=== PATIENT | female | born 1990 | race Caucasian/White ===

== ENCOUNTER 2020-11-05 05:19 | Inpatient (IN) | payer OTHER ==
[2020-11-05] MEDS ORDERED: BICITRA ORAL LIQD 30ML PO ONE ×2 (05:58→06:37)
[2020-11-05] MEDS ORDERED: METOCLOPRAMIDE 10 MG/2 ML INJ IV ONE ×2 (05:58→06:37)
[2020-11-05] MEDS ORDERED: FAMOTIDINE 20 MG/2 ML INJ IV ONE ×2 (05:58→06:37)
[2020-11-05] MEDS ORDERED: OXYTOCIN DRIP 30 UNITS/500 ML BAG IV SCH ×3 (06:00→09:00)
[2020-11-05] MEDS: LACTATED RINGERS 1,000 ML IV SCH ×2 (06:18→06:56)
--- NOTE | 2020-11-05 06:31 | History and Physical Report ---
History of Present Illness Date of examination: 11/05/20 Date of admission: 11/05/20 05:19 Chief complaint: Term with expected large baby. History of present illness: First following blastocyst implantation in [facility]. Subsequent course unremarkable. Past History Past Medical History: no pertinent history Family/Genetic History: none Social history: no significant social history, - Obstetrical History Expected Date of Delivery: 11/12/20 Actual Gestation: 39 Week(s) 0 Day(s) : 1 Para: 0 Medications and Allergies Allergies Allergy/AdvReac Type Severity Reaction Status Date / Time No Known Allergies Allergy Unverified 11/05/20 05:57 Active Meds: Active Medications Lactated Ringer's (Lactated Ringers) 1,000 mls @ 2,250 mls/hr IV PREOP JAYESH Stop: 11/06/20 06:27 Oxytocin/Sodium Chloride (Pitocin/Ns 30 Unit/500ml) 30 units in 500 mls @ 0 mls/hr IV TITR JAYESH; Protocol Review of Systems All systems: negative - Vital Signs Vital signs: Vital Signs Pulse BP 72 126/86 11/05/20 06:25 11/05/20 06:25 Temp Pulse Resp BP Pulse Ox 68 126/86 99 11/05/20 06:26 11/05/20 06:25 11/05/20 06:26 - Physical Exam Breasts: Positive: deferred Cardiovascular: Normal S1, Normal S2 Lungs: Positive: Clear to auscultation, Normal air movement Abdomen: Positive: soft, distention Genitourinary (Female): Positive: other (deferred) - Obstetrical FHR: auscultation normal Results All other labs normal. Assessment and Plan Term . Blastocyst Implantation. macrosomia. Options for delivery were fully discussed and patient chose a over trial of labor. Procedure was fully explained and patient gave her informed consent.
[2020-11-05 06:42] LABS: Hematocrit 36.5 % (30.3-42.9); Hemoglobin 12.2 gm/dl (10.1-14.3); Mean Corpuscular HGB Conc 33 % (30-34); Mean Corpuscular Volume 95 fl (79-97); Platelet Count 128 K/mm3 (140-440); Red Blood Count 3.85 M/mm3 (3.65-5.03); Red Cell Distribution Width 15.9 % (13.2-15.2)
[2020-11-05] MEDS ORDERED: LACTATED RINGERS 1,000 ML IV SCH (06:45)
[2020-11-05] MEDS ORDERED: ePHEDrine SULFATE 50 MG/1 ML INJ ONE (07:00)
--- NOTE | 2020-11-05 07:03 | Anesthesia Consultation ---
Anesthesia Consult and Med Hx Date of service: 11/05/20 - Airway Anesthetic Teeth Evaluation: Good ROM Head & Neck: Adequate Mental/Hyoid Distance: Adequate Mallampati Class: Class II Intubation Access Assessment: Probably Good - Pulmonary Exam CTA: Yes - Cardiac Exam Cardiac Exam: RRR - Pre-Operative Health Status ASA Pre-Surgery Classification: ASA2 Proposed Anesthetic Plan: Spinal - Pulmonary Hx Asthma: No COPD: No Hx Pneumonia: No - Endocrine Hx End Stage Renal Disease: No - Other Systems Hx Alcohol Use: No
--- NOTE | 2020-11-05 07:04 | Anesthesia Day of Surgery ---
Anesthesia Day of Surgery - Day of Surgery Patient Examined: Yes Patient H&P Reviewed: Yes Patient is NPO: Yes
[2020-11-05] MEDS ORDERED: ceFAZolin/Water 2 GM/20 ML 2 GM/20 ML SYRINGE IV ONE (07:08)
[2020-11-05] MEDS ORDERED: ONDANSETRON 4 MG/2 ML INJ ONE (07:09)
[2020-11-05] MEDS ORDERED: BUPIVACAINE/PF (0.5%) 5 MG/1 ML 30 ML VIAL INFILTRATI ONE (07:09)
[2020-11-05] MEDS ORDERED: KETOROLAC 30 MG/1 ML INJ ONE (07:09)
[2020-11-05] MEDS ORDERED: dexAMETHasone 20 MG/5 ML VIAL ONE (07:09)
[2020-11-05] MEDS ORDERED: PHENYLEPHRINE/NS 1,000 MCG/10 ML SYRINGE (OR USE) IV ONE (07:09)
[2020-11-05] MEDS ORDERED: SODIUM CHLORIDE 0.9% IRR 1,500 ML BOTTLE IR ONE (07:40)
[2020-11-05] MEDS ORDERED: WATER FOR IRRIG STERILE 1,500 ML BOTTLE IR ONE (07:40)
[2020-11-05] MEDS ORDERED: NALOXONE 0.4 MG/1 ML INJ IV PRN (08:35)
[2020-11-05] MEDS ORDERED: ONDANSETRON 4 MG/2 ML INJ IV PRN (08:35)
[2020-11-05] MEDS ORDERED: LANOLIN/ZINC/DIMETHICONE (LANSINOH) 7 GM TP PRN (08:35)
[2020-11-05] MEDS ORDERED: PROMETHAZINE 25 MG RECT SUPP PR PRN (08:35)
--- NOTE | 2020-11-05 08:47 | Operative Report ---
Operative Report Operative Report: Date of surgery: November 05, 2020 Preoperative diagnoses:[Term , infertility, macrosomia] Postoperative diagnoses: The same +4 cm x 2 cm fundal fibroid. Operation: Lower segment transverse delivery Surgeon:Selene Espinoza MD Health Information Tech: [JB Mejia Anesthesia: Spinal block Estimated blood loss: 700 mL Complications: None Findings: [] Procedure in detail: The patient was taken to the operating room and given a spinal block. Patient was placed in the straight supine position and a Bowens catheter was inserted. The patient was prepped in the abdomen. The drapes were placed. A timeout was done. With the go ahead from the assembler installer structures, a Pfannenstiel incision was made. This incision was carried across the subcutaneous layer to the fascia which was also divided transversely. The recti abdominis muscle flaps were stripped from the fascia using a combination of blunt and sharp dissections. The muscles were in the midline to gain access to the anterior parietal peritoneum which was divided after excluding any underlying viscera. The access to the peritoneal cavity was then widened by manual stretching. The bladder blade was applied. The utero vesicle peritoneal flap was divided transversely allowing the bladder to be displaced caudally. The uterine incision was placed in the lower segment transversely. The uterine incision was carried to the decidual layer. The uterine incision was extended on both sides using the bandage scissors. The amniotic sac was ruptured with clear fluid. The head was lifted out of the false maternal pelvis and delivered through the incision using fundal pressure. The airways were bulb suctioned beginning with the mouth. Continuing fundal pressure combined with traction on the mandibular processes of the jaw delivered the rest of the baby. The umbilical cord was double clamped and divided. The baby was carefully transferred to the pediatric team. The placenta was manually removed from the uterine cavity. The uterine cavity was explored and was empty of any placental remnants. The uterine incision was repaired in 2 layers with #1 Vicryl. The surgical line on the uterus was hemostatic. Blood and clots were cleared from the peritoneal cavity. The anterior parietal peritoneum was repaired with #1 Vicryl. The fascia was repaired with #1 Vicryl. The subcutaneous layer was made hemostatic using the Bovie before the skin was closed subcuticularly with 4-0 Vicryl. There were no complications. The estimated blood loss was 700 mL. All sponges and instrument counts were correct. Patient was safely transferred to the recovery room.
[2020-11-05] MEDS ORDERED: ACETAMINOPHEN 325 MG TAB PO PRN (09:00)
[2020-11-05] MEDS ORDERED: WITCH HAZEL/ GLYCERIN PAD TP PRN (09:00)
--- NOTE | 2020-11-05 09:06 | Progress Note ---
Spinal Anesthesia Block - Spinal Anesthesia Block Start Time: 07:35 Stop Time: 07:40 Performed by:: BETH MOLINA Procedure: Sitting, sterile chlorahexadine 0.5% prep/drape, 1% lidocaine skin local, 25G spinal needle + introducer at L3-4, + CSF, - Heme, [1.9 ml 0.5% bupivacaine + 10 mcg dexmedetomidine] injected, drape removed, patient positioned supine with left uterine displacement, and spinal level verified to be adequate prior to surgery. Joss VALLES
--- NOTE | 2020-11-05 09:07 | Progress Note ---
Regional Anesthesia Block - Regional Anesthesia Block Start Time: 09:00 Stop Time: :05 Performed By:: BETH MOLINA Procedure: U/S guided bilateral tap block performed for post-operative pain requested by Dr. Espinoza. H&P & labs reviewed. Procedure explained, questions answered, consent obtained. Patient in the supine position with ekg, blood pressure cuff and pulse ox on and working in PACU. Timeout performed immediately before start of procedure. Probe placed in the mid-axillary line and the external oblique, internal oblique, and transverse abdominus muscles identified. Skin was cleansed with chlorahexadine 0.5% and allowed to dry. A 4" 20 G [place] echogenic needle was advanced in plane until the tip was in the fascial plane between the internal oblique and the transverse abdominus. After negative aspiration 35 ml/side of [30 ml 0.5% Bupivacaine], [10 mg dexamethasone], and [40 ml sterile saline] was injected in 5 ml increments with negative aspiration in between. Patient tolerated procedure well. Joss VALLES
[2020-11-05 09:49] LABS: Band Neutrophils # (Manual) 0.2 K/mm3; Macrocytosis Few; Platelet Estimate Consistent w Auto; Total Cells Counted 100
[2020-11-05 10:05] LABS: Hematocrit 33.4 % (30.3-42.9); Hemoglobin 11.3 gm/dl (10.1-14.3); Mean Corpuscular HGB Conc 34 % (30-34); Mean Corpuscular Volume 93 fl (79-97); Platelet Count 113 K/mm3 (140-440); Red Blood Count 3.58 M/mm3 (3.65-5.03); Red Cell Distribution Width 15.4 % (13.2-15.2)
[2020-11-05 13:56] LABS: Band Neutrophils # (Manual) 0.1 K/mm3; Total Cells Counted 100
[2020-11-05 13:57] LABS: Platelet Estimate Consistent w Auto; RBC Morphology Normal
[2020-11-05] MEDS: MORPHINE 2 MG/1 ML INJ IV PRN ×2 (14:22→21:37)
[2020-11-05] MEDS ORDERED: MAGNESIUM HYDROXIDE (MOM) ORAL LIQD UDC PO PRN (20:00)
[2020-11-05 20:39] LABS: Hematocrit 30.9 % (30.3-42.9); Hemoglobin 10.4 gm/dl (10.1-14.3)
[2020-11-06] MEDS: HYDROcodone/ACETAMINOPHEN 5-325 MG TAB PO PRN ×4 (01:14→22:15)
[2020-11-06] MEDS: PRENATAL VIT27-FE FUMARATE-FOLIC ACID VIT TAB PO SCH ×2 (09:38→09:40)
--- NOTE | 2020-11-06 11:45 | Progress Note ---
Assessment and Plan Term . Blastocyst Implantation. macrosomia. Options for delivery were fully discussed and patient chose a over tria l of labor. Procedure was fully explained and patient gave her informed consent. 11/06/2020 Post Day1. Stable. - Patient Problems (1) Postoperative state Current Visit: Yes Status: Acute Subjective - Subjective Date of service: 11/06/20 Principal diagnosis: Interval history: First following blastocyst implantation in [facility]. Subsequent course unremarkable. Had an uneventful yesterday 11/05/2020. Very happy this morning and chatting on her phone. Reported that she had already walked the length of available corridor on her floor. Patient reports: appetite normal, pain well controlled, flatus, ambulating normally, no nauseated [place]: doing well Objective - Vital Signs Latest vital signs: Vital Signs Temp Pulse Resp BP BP Pulse Ox 11/06/20 09:38 16 11/06/20 08:48 98.6 F 72 18 108/77 100 11/06/20 04:45 98.2 F 71 18 108/71 97 11/05/20 23:27 98.5 F 69 20 105/69 100 11/05/20 20:35 98.0 F 20 106/68 11/05/20 17:00 98.7 F 70 18 110/68 100 Intake and Output 11/05/20 11/06/20 11/06/20 23:59 07:59 15:59 Intake Total 480 120 240 Output Total 900 300 Balance -420 -180 240 Intake: Oral 480 120 240 Output: Urine 900 300 Indwelling Catheter 600 Void 300 300 Other: Total, Intake Amount 120 120 240 Total, Output Amount 300 300 # Voids Void 1 1 - Exam Breasts: Present: deferred Lungs: Present: Normal air movement Abdomen: Present: normal appearance, soft Deep Tendon Reflex Grade: Normal +2 Incision: Present: normal, dry
--- NOTE | 2020-11-06 12:31 | Post Anesthesia Evaluation ---
- Post Anesthesia Evaluation Patient Participated: Yes Airway Patent: Yes Stable Respiratory Function: Yes Nausea/Vomiting: No Temp > 96.8F: Yes Pain Manageable: Yes Adequeate Hydration: Yes Anesthesia Complications: No Block Receding Appropriately: Yes
[2020-11-06] MEDS: IBUPROFEN 800 MG TAB PO PRN (13:46)
[2020-11-07] MEDS: HYDROcodone/ACETAMINOPHEN 5-325 MG TAB PO PRN ×3 (06:15→22:46)
[2020-11-07] MEDS: IBUPROFEN 800 MG TAB PO PRN ×2 (07:48→17:49)
[2020-11-07] MEDS: PRENATAL VIT27-FE FUMARATE-FOLIC ACID VIT TAB PO SCH (11:06)
--- NOTE | 2020-11-07 19:49 | Progress Note ---
Assessment and Plan Term . Blastocyst Implantation. macrosomia. Options for delivery were fully discussed and patient chose a over tria l of labor. Procedure was fully explained and patient gave her informed consent. 11/06/2020 Post Day1. Stable. 11/07/2020 Post op Day 2. Requesting to go home early tomorrow. [place] 5 script on file May leave in the AM if all remain stable. - Patient Problems (1) Postoperative state Current Visit: Yes Status: Acute Plan to address problem: Under post operative orders and doing just fine. Subjective - Subjective Date of service: 11/07/20 Principal diagnosis: Interval history: First following blastocyst implantation in [facility]. Subsequent course unremarkable. Had an uneventful yesterday 11/05/2020. Very happy this morning and chatting on her phone. Reported that she had already walked the length of available corridor on her floor. . 11/07/2020 Doing well. Has been walking the floor satisfactorily. Wants to go home early tomorrow. Patient reports: appetite normal, voiding normally, pain well controlled, flatus, ambulating normally, no nauseated : doing well, nursing well Objective - Vital Signs Latest vital signs: Vital Signs Temp Pulse Resp BP BP Pulse Ox 11/07/20 16:10 98 F 80 18 121/79 98 11/07/20 07:45 98.4 F 71 18 93/62 97 11/07/20 00:09 98.5 F 77 18 96/62 99 Intake and Output 11/07/20 11/07/20 11/07/20 07:59 15:59 23:59 Intake Total 600 Balance 600 Intake: Intake, Free Water 600 Other: # Voids Void 2 - Exam Breasts: Present: deferred, other (breast feedingcomfortably) Lungs: Present: Normal air movement Abdomen: Present: normal appearance, soft Uterus: Present: normal Extremities: Present: normal Deep Tendon Reflex Grade: Normal +2 Incision: Present: normal, dry
--- NOTE | 2020-11-07 19:59 | Discharge Summary ---
Providers - Providers Date of Admission: 11/05/20 05:19 Date of discharge: 11/08/20 Attending physician: KATIE EID MD NONE Primary care physician: [employer] AND NONFICTION PROSE WRITER Hospitalization Reason for admission: section Delivery: Procedure: section Procedure details: Low segment transverse through a Pfannenstiel incision. Incision: normal, dry, intact complications: none Discharge diagnosis: IUP at term delivered [place] baby: female Hospital course: uncomplicated Condition at discharge: Good Disposition: DC-01 TO HOME OR SELFCARE - Discharge Diagnoses (1) Postoperative state Status: Acute (2) delivery delivered Status: Acute Plan - Provider Discharge Summary Activity: routine, no sex for 6 weeks, no heavy lifting 4 weeks, no strenuous exercise Diet: routine Instructions: routine (May leave in the am11/08/2020if all ok. Script for norco 5 on file. F/U with MD Alexis in 2 weeks.) Additional instructions: [] Smoking cessation referral if applicable(refer to patient education folder for contact #) [] Refer to [facility] Booklet Call your doctor immediately for: * Fever > 100.5 * Heavy vaginal bleeding ( >1 pad per hour) * Severe persistent headache * Shortness of breath * Reddened, hot, painful area to leg or breast * Drainage or odor from incision. * Keep incision clean and dry at all times and follow doctor's instructions regarding bathing/showering - Follow up plan Follow up: MICHELLE RILEY MD [Primary Care Provider] - 7 Days
[2020-11-08] MEDS: IBUPROFEN 800 MG TAB PO PRN (01:06)
[2020-11-08] MEDS: HYDROcodone/ACETAMINOPHEN 5-325 MG TAB PO PRN (05:30)
[2020-11-08 08:14] VITALS: BP 100/73
== END 2020-11-08 10:30 | disposition home or self-care (01) | DRG 788 ==
LOC: APU 05:19 → OB 10:35
PROVIDERS: ADMIT Obstetrics & Gynecology; ATTEND Obstetrics & Gynecology
PROC: 10D00Z1 Extraction of Products of Conception, Low, Open Approach (ICD-10-PCS; principal; 2020-11-05)
DX: O36.63X0 Maternal care for excessive fetal growth, third trimester, not applicable or unspecified (principal); Z3A.39 39 weeks gestation of pregnancy; Z37.0 Single live birth; Z20.822 Contact with and (suspected) exposure to COVID-19
CPT/HCPCS: 36415; 59025; 85007; 85014; 85018; 85025; 86592; 86850; 86900; 86901; 99211; G0378; G0463; J1100; J1885; J2270; J2370; J2405; J2765; J3490; J7120; U0003